=== PATIENT | female | born 1955 ===

== ENCOUNTER 2019-02-16 05:30 | Day surgery (SDC) | payer OTHER ==
[~2019-02-16 05:30] MED LIST: SYNTHROID50 MCG PO
[2019-02-16] MEDS ORDERED: IBU600 MG PO (08:46)
== END 2019-02-16 10:27 | disposition home or self-care (01) ==
LOC: CIR.AMB 05:30
DX: N84.0 Polyp of corpus uteri (principal)

== ENCOUNTER 2019-05-07 07:30 | Inpatient (IN) | payer OTHER ==
[~2019-05-07] VITALS: Ht 160 cm; Wt 66.2 kg
[~2019-05-07 07:30] MED LIST changes: +IBU600 MG PO
[2019-05-08] MEDS ORDERED: RASUVO 2525 MG/0.5 (12:46)
[2019-05-14] MEDS ORDERED: PEPCID AC20 MG PO (06:32)
[2019-05-14] MEDS ORDERED: CODE1TAB37 PO (06:32)
== END 2019-05-14 08:55 | disposition home or self-care (01) | DRG 743 ==
LOC: ADM 07:30 → EDSTATUS 05-08 09:00 → OB/GYN 05-11 09:00 → O/R 05-11 10:13 → OB/GYN 05-11 10:13
PROVIDERS: ADMIT Obstetrics & Gynecology Gynecology
PROC: 0UT70ZZ Resection of Bilateral Fallopian Tubes, Open Approach (ICD-10-PCS; 2019-05-11)
PROC: 0UT20ZZ Resection of Bilateral Ovaries, Open Approach (ICD-10-PCS; 2019-05-11)
PROC: 0UT90ZZ Resection of Uterus, Open Approach (ICD-10-PCS; principal; 2019-05-11 17:30)
DX: D25.2 Subserosal leiomyoma of uterus (principal); N84.0 Polyp of corpus uteri; N72 Inflammatory disease of cervix uteri; N83.292 Other ovarian cyst, left side; N73.6 Female pelvic peritoneal adhesions (postinfective); N95.0 Postmenopausal bleeding